=== PATIENT | male | born 1950 | race Caucasian/White ===

== ENCOUNTER 2021-09-03 07:28 | Outpatient (CLI) | payer OTHER | END 2021-09-03 07:44 | disposition home or self-care (01) | LOC: LAB 07:28 | PROVIDERS: ATTEND Surgery | DX: D37.5 Neoplasm of uncertain behavior of rectum (principal); R19.5 Other fecal abnormalities; K62.82 Dysplasia of anus; D12.9 Benign neoplasm of anus and anal canal ==

== ENCOUNTER 2021-10-03 08:36 | Day surgery (SDC) | payer OTHER ==
[~2021-10-03 08:36] MED LIST: DOVATO; LEVOTHYROXINE; LOVAZA1 GM PO; SYNTHROID50 MCG PO
[2021-10-03] MEDS ORDERED: RECTICARE30 GM TOP (11:11)
[2021-10-03] MEDS ORDERED: PERCOCET 5-3251 EACH PO (11:11)
== END 2021-10-03 18:25 | disposition home or self-care (01) ==
LOC: CIR.AMB 08:36
PROVIDERS: ATTEND Surgery
DX: K62.6 Ulcer of anus and rectum (principal); K64.9 Unspecified hemorrhoids; Z20.822 Contact with and (suspected) exposure to COVID-19; K62.82 Dysplasia of anus; E03.9 Hypothyroidism, unspecified